=== PATIENT | male | born 1940 | race Caucasian/White ===

== ENCOUNTER → 2023-06-01 14:16 | Outpatient (BNVA) | payer MEDICARE, MEDICAID, SELFPAY | PROVIDERS: PCP Internal Medicine; Referring Provider Internal Medicine; Visit Provider Physician Assistant Surgical | DX: J38.00 Paralysis of vocal cords and larynx, unspecified (principal); K21.9 Gastro-esophageal reflux disease without esophagitis; K44.9 Diaphragmatic hernia without obstruction or gangrene; J98.6 Disorders of diaphragm | CPT/HCPCS: 99214 ==

== ENCOUNTER → 2023-09-04 10:01 | Outpatient (BNVA) | payer MEDICARE, MEDICAID, SELFPAY | PROVIDERS: PCP Internal Medicine; Referring Provider Internal Medicine; Visit Provider Student in an Organized Health Care Education/Training Program | DX: J98.6 Disorders of diaphragm (principal); K44.9 Diaphragmatic hernia without obstruction or gangrene; J96.91 Respiratory failure, unspecified with hypoxia; Z09 Encounter for follow-up examination after completed treatment for conditions other than malignant neoplasm | CPT/HCPCS: 99443 ==

== ENCOUNTER → 2023-11-01 09:22 | Outpatient (BNVA) | payer MEDICARE, MEDICAID, SELFPAY | PROVIDERS: PCP Internal Medicine; Referring Provider Internal Medicine; Visit Provider Physician Assistant Surgical | DX: J38.00 Paralysis of vocal cords and larynx, unspecified (principal); K21.9 Gastro-esophageal reflux disease without esophagitis; K44.9 Diaphragmatic hernia without obstruction or gangrene; J98.6 Disorders of diaphragm | CPT/HCPCS: 99214 ==

== ENCOUNTER 2023-12-04 07:50 | Outpatient (CLI) | payer MEDICARE, MEDICAID, SELFPAY ==
--- NOTE | 2023-12-04 07:45 | RT.EKG_ITS ---
APPROVED REPORT Exam: Resting ECG Reason for Exam: CAD Patient Location: O HR:81 bpm ECG Measurements Heart Rate 81 AXIS MN 174 P 54 QRSd 108 QRS 36 QT 375 T 4 QTc 436 Conclusion Sinus rhythm...normal P axis, V-rate 50- 99 Baseline wander in lead(s) V2,V3,V4,V6
== END 2023-12-04 07:51 | disposition home or self-care (01) ==
LOC: DI.CARD 07:50
PROVIDERS: PCP Internal Medicine; Visit Provider Internal Medicine Cardiovascular Disease
DX: I21.4 Non-ST elevation (NSTEMI) myocardial infarction (principal)
CPT/HCPCS: 93010

== ENCOUNTER → 2023-12-04 09:51 | Outpatient (BNVA) | payer MEDICARE, MEDICAID, SELFPAY | PROVIDERS: PCP Internal Medicine; Referring Provider Internal Medicine; Visit Provider Internal Medicine Cardiovascular Disease | DX: J96.11 Chronic respiratory failure with hypoxia (principal); I35.0 Nonrheumatic aortic (valve) stenosis; I34.2 Nonrheumatic mitral (valve) stenosis; R94.31 Abnormal electrocardiogram [ECG] [EKG]; I21.4 Non-ST elevation (NSTEMI) myocardial infarction | CPT/HCPCS: 93005; 99214 ==

== ENCOUNTER → 2024-02-13 14:45 | Outpatient (BNVA) | payer MEDICARE, MEDICAID, SELFPAY | PROVIDERS: PCP Internal Medicine; Referring Provider Internal Medicine; Visit Provider Internal Medicine | DX: J96.11 Chronic respiratory failure with hypoxia (principal); K44.9 Diaphragmatic hernia without obstruction or gangrene; Q79.1 Other congenital malformations of diaphragm; F51.9 Sleep disorder not due to a substance or known physiological condition, unspecified | CPT/HCPCS: 99215 ==

== ENCOUNTER → 2024-06-25 10:18 | Outpatient (BNVA) | payer MEDICARE, MEDICAID, SELFPAY | PROVIDERS: PCP Internal Medicine; Referring Provider Internal Medicine; Visit Provider Physician Assistant Surgical | DX: J38.00 Paralysis of vocal cords and larynx, unspecified (principal); K21.9 Gastro-esophageal reflux disease without esophagitis; K44.9 Diaphragmatic hernia without obstruction or gangrene; J98.6 Disorders of diaphragm | CPT/HCPCS: 99214 ==

== ENCOUNTER → 2024-09-17 12:54 | Outpatient (BNVA) | payer MEDICARE, MEDICAID, SELFPAY | PROVIDERS: PCP Internal Medicine; Referring Provider Internal Medicine; Visit Provider Physician Assistant Surgical | DX: J38.00 Paralysis of vocal cords and larynx, unspecified (principal); K21.9 Gastro-esophageal reflux disease without esophagitis; K44.9 Diaphragmatic hernia without obstruction or gangrene; J98.6 Disorders of diaphragm | CPT/HCPCS: 99214 ==

== ENCOUNTER → 2024-12-17 13:58 | Outpatient (BNVA) | payer MEDICARE, MEDICAID, SELFPAY | PROVIDERS: PCP Internal Medicine; Referring Provider Internal Medicine; Visit Provider Physician Assistant Surgical | DX: J96.91 Respiratory failure, unspecified with hypoxia (principal); K21.9 Gastro-esophageal reflux disease without esophagitis; Q79.1 Other congenital malformations of diaphragm; J38.00 Paralysis of vocal cords and larynx, unspecified | CPT/HCPCS: 99214 ==

== ENCOUNTER → 2025-05-05 10:43 | Outpatient (BNVA) | payer MEDICARE, MEDICAID, SELFPAY | PROVIDERS: PCP Internal Medicine; Referring Provider Internal Medicine; Visit Provider Physician Assistant Surgical | DX: J38.00 Paralysis of vocal cords and larynx, unspecified (principal); K21.9 Gastro-esophageal reflux disease without esophagitis; K44.9 Diaphragmatic hernia without obstruction or gangrene; J98.6 Disorders of diaphragm; Z23 Encounter for immunization | CPT/HCPCS: 99214; 90471; 90684 ==